=== PATIENT | female | born 1945 | race Caucasian/White ===

== ENCOUNTER 2017-01-14 08:50 | Day surgery (SDC) | payer MEDICARE, BC ==
--- NOTE | 2017-01-08 19:57 | HP ---
CC: Dr. Jay Mckinney; [facility] * HISTORY AND PHYSICAL: DATE OF ADMISSION/SURGERY: 01/14/17 ATTENDING PHYSICIAN: Enoch Cornejo MD * (DICTATED BY JENNIFER GRIFFITH) CHIEF COMPLAINT: Right nipple discharge. HISTORY OF PRESENT ILLNESS: Mrs. Kirkland is a pleasant 71-year-old female, who was referred to our [facility] from [facility] with complaints of right nipple discharge. The patient notes that she had a single episode of dark- black nipple discharge earlier last week. She denies any recurrent symptoms from the right or the left breast. She has never noticed any similar complaints in the past. She was seen by her [facility] office and had breast exam and also had a followup digital right mammogram as well as ultrasound. The patient had her annual mammogram back in May that has been normal bilaterally. Her followup digital right mammogram and sonogram last week was essentially normal as well. The patient was sent to our office for further evaluation of right nipple discharge. She was seen by Dr. Cornejo last week and had examination of bilateral breasts that was found to be normal as well. The patient herself denies feeling any masses, lumps, skin changes or nipple retraction bilaterally. She does have a self-breast exam on a regular basis. She is menarche at age 14 and her last menstrual period was roughly in 2003. She is a G4, P3, postmenopausal female, with no significant past OCCUPATIONAL THERAPIST history. She denies any oral contraceptive use. She has never had any breast biopsy or any history of breast problems in the past. She also denies any significant family history of breast cancer. Given her episode of right breast discharge, she was sent to our office for evaluation and she was found to be a good candidate for right breast terminal duct excision to be performed by Dr. Cornejo on a later date. PAST MEDICAL HISTORY: Significant for hypertension, hyperlipidemia, and seasonal allergies. PAST SURGICAL HISTORY: Significant for cholecystectomy 20 years ago, as well as right foot hammertoe surgery, as well as Moise neuroma removed. She also had dilatation and curettage back in August of 1999, as well as tonsillectomy and adenoidectomy, and wisdom teeth extraction. CURRENT MEDICATIONS: Her medications at home include: 1. Loratadine 10 mg once daily. 2. Multivitamin 1 p.o. q. daily. 3. Caltrate with vitamin D 600 mg once daily. 4. Ramipril 10 mg once daily. 5. Crestor 5 mg 1 tablet q. day. 6. She also carries an EpiPen 2-Tha, to use as needed since she is allergic to BEE STING. ALLERGIES: Her medication allergies include DEMEROL, ERYTHROMYCIN, TOPICAL MYCIN OINTMENTS. FAMILY HISTORY: Significant for pancreatic cancer in her mother, who is back in 2005, as well as heart disease and hypertension, but denies any family history of breast cancer. SOCIAL HISTORY: The patient has never smoked. She drinks alcohol rarely and caffeine intake is minimal. REVIEW OF SYSTEMS: See HPI, otherwise negative. She denies any headache, dizziness, blurred vision or double vision. No sore throat, cough, shortness of breath, palpitation or chest pain. She denies any back pain, flank pain, dysuria, hematuria, or urinary frequency. She admits to a single episode of right nipple discharge, but denies any breast pain, swelling, redness, lumps or masses on self- breast exam. No fever, chills, night sweats or recent weight loss. PHYSICAL EXAMINATION GENERAL: She is a pleasant older female, healthy appearing, and in no acute distress or discomfort at the time of her visit. VITAL SIGNS: Her vitals today revealed a blood pressure of 138/94, pulse of 66 , temperature of 97.3, and respirations of 16. She is 5 feet 2 inches, and weighs 200 pounds, with BMI of 36.6. HEENT: Sclerae anicteric. PERRLA. EOMs intact. Oropharynx is pink and moist , with no exudate. NECK: Supple. Trachea midline. No cervical adenopathy or thyromegaly. LUNGS: Clear to auscultation bilaterally. No rales, wheezes or rhonchi. HEART: Regular rate and rhythm. Normal S1 and S2, without rubs, murmurs or gallops. BACK: Normal curvature. No CVA tenderness. BREAST EXAM: Performed earlier this week by Dr. Cornejo, that showed symmetrical breasts on examination, without any skin or nipple changes. There was no axillary or supraclavicular lymphadenopathy bilaterally. Careful examination of the right breast failed to reveal any suspicious masses, lumps or lesions. There was a very scanty bloody nipple discharge from the 7 o'clock position of the right nipple and was consistently coming from a solitary duct. There was no nipple discharge noted on the left breast. ABDOMEN: Soft, nontender, and nondistended. No hernias, masses or hepatosplenomegaly. EXTREMITIES: Without cyanosis, clubbing or edema. NEUROLOGIC: Grossly intact. RECTAL EXAM: Deferred at this time. IMPRESSION: A 71-year-old female with an episode of right nipple bloody discharge with negative digital mammogram and ultrasound. PLAN: Patient was seen, as mentioned above, with Dr. Cornejo earlier this week and she is scheduled for a right breast terminal duct excision on 01/14/17. We discussed with her today, the rationale, indications, risks, and benefits of surgery. Risks include, but not limited to infection, bleeding or injury to adjacent structures. The patient appears to understand and wishes to proceed with surgery as outlined. We will obtain baseline blood work and updated EKG unless she had one in the last 6 months. She is relatively healthy female and there is no need for any medical clearance to be obtained. The plan is for her to have right breast terminal duct excision with IV sedation as well as local anesthetic to be performed as a same-day surgery procedure. We will follow her up accordingly. JENNIFER GRIFFITH [id number]/[facility] #: [id number] CARLA
[~2017-01-14 08:50] MED LIST: Buffered Lidocaine 0.9% SYRIN* 5 ML/SYR SYRINGE INTRADERM ONE
[2017-01-14] MEDS ORDERED: ceFAZolin 2 GM PREMIX (*) 50 ML IVPB ONE (09:00)
[2017-01-14] MEDS ORDERED: Buffered Lidocaine 0.9% SYRIN* 5 ML/SYR SYRINGE ONE (09:00)
[2017-01-14] MEDS ORDERED: Lidocaine 1% INJ* 10 MG/ML 30 ML SDV ONE (09:54)
[2017-01-14] MEDS ORDERED: Bupivacaine 0.5% SDV PF* 30 ML VIAL ONE (09:54)
[2017-01-14] MEDS ORDERED: Midazolam* 1 MG/ML 5 ML VIAL (5 MG) ONE (10:10)
[2017-01-14] MEDS ORDERED: fentaNYL* 50 MCG/ML 2 ML VIAL (100 MCG VIAL) ONE (10:20)
[2017-01-14] MEDS ORDERED: Propofol* 10 MG/ML 20 ML BTL IV PUSH ONE (10:31)
[2017-01-14] MEDS ORDERED: Midazolam* 1 MG/ML 2 ML VIAL (2 MG) ONE (10:31)
[2017-01-14] MEDS ORDERED: fentaNYL* 50 MCG/ML 2 ML VIAL (100 MCG VIAL) IV PRN (10:48)
[2017-01-14] MEDS ORDERED: HYDROcodone/ACETAMIN 5-325 MG* 1 TAB PO PRN (10:48)
[2017-01-14] MEDS ORDERED: oxyCODONE TAB* 5 MG TAB PO PRN (10:48)
[2017-01-14] MEDS ORDERED: Ondansetron INJ* 2 MG/ML VIAL IV PRN (10:48)
[2017-01-14 12:05] VITALS: BP 120/85
[2017-01-14] MEDS ORDERED: HYDROcodone/ACETAMIN 5-325 MG* 1 TAB ONE (12:20)
--- NOTE | 2017-01-15 03:03 | OP ---
CC: Dr. Mckinney; [facility] * DATE OF OPERATION: 01/14/17 - [facility] DATE OF : 47 SURGEON: Enoch Cornejo MD. EDI DEVELOPER: None. ANESTHESIOLOGIST: Dr. Lopes. ANESTHESIA: LMAC anesthesia. PRE-OP DIAGNOSIS: Bloody nipple discharge. POST-OP DIAGNOSIS: Bloody nipple discharge. OPERATIVE PROCEDURE: Right terminal duct excision. DESCRIPTION OF PROCEDURE: The patient was supine on the operative table. After adequate intravenous sedation, compression stockings, Prabha Hugger warmer and intravenous antibiotics, the right breast was prepped with antiseptic and draped in a sterile fashion. Local infiltrative anesthesia was administered. The bloody nipple discharge was identified, and a 0 lacrimal duct probe was passed into the duct. A curvilinear incision was created at the edge of the areola. The duct was then approximated at 7 o'clock position. Dissection was carried out underneath the areola and underneath the nipple to find the duct exiting the nipple and the duct was taken off the nipple and a piece of breast tissue approximately 3 x 3 x 4 cm in size was excised. A white suture was used to fred the terminal duct. A dark suture was used to fred long, short, and medium and it was sent in formalin for pathologic evaluation. During the dissection, a small button hole had been created at the edge of the nipple. This was closed with 5-0 Vicryl. Local anesthetic was additional advanced in the deep tissues as cautery was used for hemostasis. 3-0 Vicryl suture and 5-0 Vicryl suture were used for final closure followed by Steri-Strips and a gauze dressing. She tolerated the procedure well, was awakened and brought to Recovery in good condition. There were no complications. No drains. Pathologic specimen is terminal duct excision. Sponge and instrument counts correct. Estimated blood loss less than 30 mL. [id number]/[facility] #: [id number] [facility]
== END 2017-01-14 12:53 | disposition home or self-care (01) ==
LOC: OR 08:50
PROVIDERS: ATTEND Surgery
DX: N64.52 Nipple discharge (principal); N60.91 Unspecified benign mammary dysplasia of right breast; N64.59 Other signs and symptoms in breast; I10 Essential (primary) hypertension; Z90.49 Acquired absence of other specified parts of digestive tract
CPT/HCPCS: 88307; J0690; J2001; J2250; J2704; J3010

== ENCOUNTER 2017-08-04 08:22 | Day surgery (SDC) | payer MEDICARE, BC ==
[~2017-08-04 08:22] MED LIST changes: +Cyclopentolate 1% OPTH.SOL* 2 ML BTL ONE; +Ketorolac 0.5% OPHTH (NF) 0.5 % 5 ML BTL ONE; +Lidocaine 1% MPF* 2 ML VIAL ONE; +Lidocaine 2% EPI 1:200000 MPF* 20 ML VIAL ONE; +Neomycin/Polymy/Dex OPTH.SUSP* MAXITROL 0.1% 5 ML ONE; +Phenylephrine 2.5% OPTH.SOL* 2 ML BTL ONE; +Povidone Iodine 5% OPTH* 30 ML BTL ONE; +Proparacaine 0.5% OPHTH.SOL* 15 ML BTL ONE; +acetaZOLAMIDE TAB* 250 MG ONE
[2017-08-04] MEDS ORDERED: Midazolam* 1 MG/ML 2 ML VIAL (2 MG) ONE ×2 (10:28)
--- NOTE | 2017-08-04 11:01 | OP ---
DATE OF OPERATION: 08/04/2017. DATE OF : 1945. SURGEON: Gilberto Longo M.D. PREOPERATIVE DIAGNOSIS: Cataract right eye. POSTOPERATIVE DIAGNOSIS: Cataract right eye. OPERATIVE PROCEDURE: Extracapsular cataract extraction with intraocular lens implant right eye. PROCEDURE: The patient was brought to the operating room after being given 1/2% Alcaine with epineph rine drops in the preoperative area. The eye was prepped and draped in the usual sterile fashion. S terile drape and eyelid speculum were placed. Again, topical 1/2% Alcaine with epinephrine was given . A paracentesis incision was made at the 9 o'clock position with the No.75 blade. Clear cornea inc ision 2.2 x 2.2-mm was created at the 12 o'clock position starting at the anterior limbus using the 2 .2-mm keratome. The anterior chamber was irrigated with 0.4 mL of 1% non-preservative intracameral l idocaine and filled with DisCoVisc. A capsulorrhexis was completed using the cystotome and the Utrat a forceps. Hydrodissection was performed with balanced salt solution. The lens nucleus was removed w ith the Phacoemulsification handpiece without incident. Cortex was removed with the irrigation-aspir ation handpiece. The capsular bag was re-inflated using DisCoVisc and an [id number] 18 implant was inser diana with the shooter. A Malyugin ring was used to dilate the pupil prior to capsulorrhexis because t he pupil was only a few millimeters large and removed after insertion of the lens. The irrigation-as piration handpiece was used to remove all residual DisCoVisc. The eye was refilled with balanced brandon t solution and the wound checked and found to be watertight. Topical Maxitrol drops were given. Indication for complex cataract surgery: Pupil abnormalities requiring iris dilation device. [id number]/[facility] #: [id number]
[2017-08-04 11:09] VITALS: BP 139/59
== END 2017-08-04 11:04 | disposition home or self-care (01) ==
LOC: OREAST 08:22
PROVIDERS: ATTEND Specialist
DX: H25.11 Age-related nuclear cataract, right eye (principal); H21.561 Pupillary abnormality, right eye; I10 Essential (primary) hypertension; E78.4 Other hyperlipidemia
CPT/HCPCS: A9270-GY; J2250; V2632

== ENCOUNTER 2017-08-11 10:19 | Day surgery (SDC) | payer MEDICARE, BC ==
[~2017-08-11 10:19] MED LIST changes: -Lidocaine 2% EPI 1:200000 MPF* 20 ML VIAL ONE; +Lidocaine 2% EPI 1:200000 MPF*10-20 ML VIAL ONE
[2017-08-11] MEDS ORDERED: Midazolam* 1 MG/ML 2 ML VIAL (2 MG) ONE (12:50)
[2017-08-11 13:25] VITALS: BP 148/89
--- NOTE | 2017-08-11 13:25 | OP ---
DATE OF OPERATION: 08/11/2017. DATE OF : 1945. SURGEON: Gilberto Longo M.D. PREOPERATIVE DIAGNOSIS: Cataract left eye. POSTOPERATIVE DIAGNOSIS: Cataract left eye. OPERATIVE PROCEDURE: Extracapsular cataract extraction with intraocular lens implant left eye. PROCEDURE: The patient was brought to the operating room after being given 1/2% Alcaine with epineph rine drops in the preoperative area. The eye was prepped and draped in the usual sterile fashion. S terile drape and eyelid speculum were placed. Again, topical 1/2% Alcaine with epinephrine was given . A paracentesis incision was made at the 3 o'clock position with the No.75 blade. Clear cornea inc ision 2.2 x 2.2-mm was created at the 6 o'clock position starting at the anterior limbus using the 2. 2-mm keratome. The anterior chamber was irrigated with 0.4 mL of 1% non-preservative intracameral li docaine and filled with DisCoVisc. A capsulorrhexis was completed using the cystotome and the Utrata forceps. Hydrodissection was performed with balanced salt solution. The lens nucleus was removed wi th the Phacoemulsification handpiece without incident. Cortex was removed with the irrigation-aspira tion handpiece. The capsular bag was re-inflated using DisCoVisc and an SN60WF 19.5 implant was inse rted with the shooter. A Malyugin ring was used to dilated the pupil prior to capsulorrhexis because of a small pupil, removed after insertion of the lens. The irrigation-aspiration handpiece was used to remove all residual DisCoVisc. The eye was refilled with balanced salt solution and the wound ch ecked and found to be watertight. Topical Maxitrol drops were given. Indication for complex cataract surgery: Iris abnormalities requiring pupil dilation device. [id number]/[facility] [place] #: [id number]
== END 2017-08-11 13:21 | disposition home or self-care (01) ==
LOC: OREAST 10:19
PROVIDERS: ATTEND Specialist
DX: H25.12 Age-related nuclear cataract, left eye (principal); Q13.2 Other congenital malformations of iris; I10 Essential (primary) hypertension; E78.4 Other hyperlipidemia
CPT/HCPCS: A9270-GY; J2250; V2632

== ENCOUNTER 2018-04-04 16:54 | Emergency (ER) | payer MEDICARE, BC ==
[2018-04-04] MEDS ORDERED: Labetalol IV* 5 MG/ML 20 ML VIAL IV PUSH ONE (20:59)
--- NOTE | 2018-04-04 21:03 | ED ---
Neurological HPI - HPI Summary HPI Summary: This patient is a 72 year old female presenting to [facility] with a chief complaint of a mini-stroke 2 days ago. Patient has a hx of sciatica and ophthalmic migraines. Patient states 2 days ago, she started having symptoms that mimic a migraine with a headache and blurry vision. Soon after, her right hand went numb and she experienced tingling along her right jaw. Patient states she became confused, with scattered thoughts and was unable to speak properly. The episode lasted around 2 and a half minutes. Patient states afterwards there was no headache, but she took exedrin just in case. Currently, patient is at baseline with no issues. - History of Current Complaint Chief Complaint: EDNeurologicalDeficit Stated Complaint: POSS MINI STROKE Time Seen by Provider: 04/04/18 20:43 Onset/Duration: Started days ago, Resolved Timing: Constant Current Severity: None Neurological Deficit Location: Facial, RUE Headache Location: Occipital (Right), Occipital (Left) Pain Intensity: 0 Pain Scale Used: 0-10 Numeric Character: Paresthesia, Motor Weakness, Impaired Speech, Confusion Episode Lasting: Seconds/Minutes - 2 and half minutes Number of Episodes: 1 Aggravating: Nothing Alleviating: Nothing Associated Signs and Symptoms: Positive: Visual Changes, Impaired Speech, Numbness - Allergy/Home Medications Allergies/Adverse Reactions: Allergies Allergy/AdvReac Type Severity Reaction Status Date / Time erythromycin base Allergy Severe Rash, HIVES Verified 04/04/18 17:10 meperidine AdvReac Intermediate Nausea Verified 04/04/18 17:10 bee stings Allergy Severe hives, Uncoded 08/11/17 10:28 swelling topical mycins Allergy Severe Rash Uncoded 08/11/17 10:28 PMH/Surg Hx/FS Hx/Imm Hx Previously Healthy: No Cardiovascular History: Reports: Hx Hypertension Musculoskeletal History: Reports: Hx Arthritis - OSTEOPENIA, Hx Osteoporosis - OSTEOPENIA, Other Musculoskeletal History - spinal stenosis Denies: Hx Rheumatoid Arthritis Sensory History: Reports: Hx Cataracts - BOTH EYES, Hx Contacts or Glasses Denies: Hx Hearing Aid Opthamlomology History: Reports: Hx Cataracts - BOTH EYES, Hx Contacts or Glasses Neurological History: Reports: Hx Headaches, Hx Migraine - Cancer History Hx Chemotherapy: No Hx Radiation Therapy: No - Surgical History Surgery Procedure, Year, and Place: cholecystectomy, possible diverticulitis Hx Anesthesia Reactions: No Infectious Disease History: No Infectious Disease History: Denies: Traveled Outside the [place] in Last 30 Days - Family History Known Family History: Positive: Hypertension - Social History Alcohol Use: Weekly Alcohol Amount: 1-2 DAILY-WEEKLY Hx Substance Use: No Substance Use Type: Reports: None Hx Tobacco Use: No Smoking Status (MU): Never Smoked Tobacco Review of Systems Negative: Fever Positive: Blurred Vision Positive: Headache, Weakness, Paresthesia, Numbness All Other Systems Reviewed And Are Negative: Yes Physical Exam - Summary Physical Exam Summary: VITAL SIGNS: Reviewed. GENERAL: Patient is a well-developed and nourished female who is lying comfortable in the stretcher. Patient is not in any acute respiratory distress. HEAD AND FACE: No signs of trauma. No ecchymosis, hematomas or skull depressions. No sinus tenderness. EYES: PERRLA, EOMI x 2, No injected conjunctiva, no nystagmus. EARS: Hearing grossly intact. Ear canals and tympanic membranes are within normal limits. MOUTH: Oropharynx within normal limits. NECK: Supple, trachea is midline, no adenopathy, no JVD, no carotid bruit, no c- spine tenderness, neck with full ROM. CHEST: Symmetric, no tenderness at palpation LUNGS: Clear to auscultation bilaterally. No wheezing or crackles. CVS: Regular rate and rhythm, S1 and S2 present, no murmurs or gallops appreciated. ABDOMEN: Soft, non-tender. No signs of distention. No rebound no guarding, and no masses palpated. Bowel sounds are normal. EXTREMITIES: FROM in all major joints, no edema, no cyanosis or clubbing. NEURO: Alert and oriented x 3. No acute neurological deficits. Speech is normal and follows commands. SKIN: Dry and warm Triage Information Reviewed: Yes Vital Signs On Initial Exam: Initial Vitals Temp Pulse Resp BP Pulse Ox 97.6 F 99 16 184/96 96 04/04/18 17:00 04/04/18 17:00 04/04/18 17:00 04/04/18 17:00 04/04/18 17:00 Vital Signs Reviewed: Yes - Roseann Coma Scale Best Eye Response: 4 - Spontaneous Best Motor Response: 6 - Obeys Commands Best Verbal Response: 5 - Oriented Coma Scale Total: 15 Diagnostics - Vital Signs Vital Signs Temp Pulse Resp BP Pulse Ox 04/04/18 19:00 98.2 F 81 16 170/111 96 04/04/18 17:00 97.6 F 99 16 184/96 96 - Laboratory Result Diagrams: 04/04/18 21:26 04/04/18 21:21 Lab Statement: Any lab studies that have been ordered have been reviewed, and results considered in the medical decision making process. - CT CT Brain CT Interpretation Completed By: Radiologist Summary of CT Findings: No acute intracranial abnormality. ED physician has reviewed this radiology report. CTA head CT Interpretation Completed By: Radiologist Summary of CT Findings: no acute findings, No acute vascular abnormality identified in the neck. ED physician has reviewed this radiology report. - EKG 2115 Cardiac Rate: NL EKG Rhythm: Sinus Rhythm - 64 BPM Summary of EKG Findings: An EKG, taken 2115, reveals NSR (64 BPM), normal axis, normal intervals, Nonspecific T-wave changes in the inferior leads at low voltage Course/Dx - Course Assessment/Plan: his patient is a 72 year old female presenting to [facility] with a chief complaint of a mini-stroke 2 days ago. Patient has a hx of sciatica and ophthalmic migraines. Patient states 2 days ago, she started having symptoms that mimic a migraine with a headache and blurry vision. Soon after, her right hand went numb and she experienced tingling along her right jaw. Patient states she became confused, with scattered thoughts and was unable to speak properly. The episode lasted around 2 and a half minutes. Patient states afterwards there was no headache, but she took exedrin just in case. Currently, patient is at baseline with no issues.CT Brain reveals, per radiologist, No acute intracranial abnormality. ED physician has reviewed this radiology report. CTA Head reveals, per radiologist, no acute findings, No acute vascular abnormality identified in the neck. Bloodwork obtained. In the ED the patient was given Labetalol. The patient will be d/c home with a dx of TIA. - Diagnoses Provider Diagnoses: TIA (transient ischemic attack) Discharge - Sign-Out/Discharge Documenting (check all that apply): Patient Departure - Discharge Plan Condition: Stable Disposition: HOME Patient Education Materials: Transient Ischemic Attack (ED) Referrals: Jay Mckinney MD [Primary Care Provider] - Additional Instructions: Take one whole aspirin daily with food. Follow up with your primary care physician in 1-3 days. RETURN TO THE EMERGENCY DEPARTMENT FOR CHANGING OR WORSENING SYMPTOMS. - Attestation Statements Document Initiated by Scribe: Yes Documenting Scribe: Sharon Harris Provider For Whom Scribe is Documenting (Include Credential): Jorge Barbour MD Scribe Attestation: Sharon Mendez, scribed for Jorge Barbour MD on 04/05/18 at 0017. Status of Scribe Document: Ready
[2018-04-04 21:33] LABS: INR 0.89 (0.77-1.02)
[2018-04-04 21:47] LABS: ABS Basophils 0.1 10^3/ul (0-0.2); ABS Eosinophils 0.2 10^3/ul (0-0.6); ABS Lymphocytes 2.2 10^3/ul (1.0-4.8); ABS Monocytes 0.5 10^3/ul (0-0.8); ABS Neutrophils 3.4 10^3/ul (1.5-7.7); ABS Nucleated RBC 0 10^3/ul; Eosinophil % 2.4 %; Hematocrit 40 % (35-47); Hemoglobin 13.9 g/dl (12.0-16.0); Lymphocyte % 35.2 %; Mean Corpuscular HGB Conc 35 g/dl (31-36); Mean Corpuscular Hemoglobin 32 pg (27-31); Mean Corpuscular Volume 92 fL (80-97); Mean Platelet Volume 7.5 fL (7.4-10.4); Nucleated Red Blood Cells % 0.3; Platelet Count 244 10^3/ul (150-450); Red Cell Distribution Width 13 % (10.5-15); White Blood Count 6.3 10^3/ul (3.5-10.8)
[2018-04-04 22:00] LABS: EGFR Non-African American 76.2 (>60)
[2018-04-04] MEDS ORDERED: Iohexol 350* (CONTRAST) 500 ML MDV IV ONE (22:19)
[2018-04-05 01:06] VITALS: BP 152/95
== END 2018-04-05 01:06 | disposition home or self-care (01) ==
LOC: ED 16:54
DX: G45.9 Transient cerebral ischemic attack, unspecified (principal); R51 Headache; H53.8 Other visual disturbances; R53.1 Weakness; I10 Essential (primary) hypertension
CPT/HCPCS: 36415; 70450; 70496; 70498; 80053; 83735; 85025; 85610; 85730; 93005; 99283

== ENCOUNTER 2022-03-05 17:46 | Observation (INO) ==
[2022-03-05] MEDS ORDERED: Iodixanol (CONTRAST) 320 MG/ML 100 ML SDV IV ONE (18:13)
[2022-03-05 19:05] LABS: ABS Eosinophils 0.1 10^3/ul (0-0.6); ABS Monocytes 0.5 10^3/ul (0-0.8); Eosinophil % 2.2 %; Hematocrit 41 % (35-47); Hemoglobin 13.8 g/dL (12.0-16.0); Lymphocyte % 30.3 %; Mean Corpuscular HGB Conc 33 g/dL (31-36); Mean Corpuscular Hemoglobin 32 pg (27-31); Mean Corpuscular Volume 97 fL (80-97); Mean Platelet Volume 7.2 fL (7.4-10.4); Platelet Count 272 10^3/uL (150-450); Red Blood Count 4.29 10^6 /uL (3.70-4.87); Red Cell Distribution Width 13 % (10-15); White Blood Count 6.7 10^3/uL (3.5-10.8)
[2022-03-05 19:15] LABS: Activated Partial Thrombo Time 31.2 seconds (26.0-38.0); INR 0.93 (0.89-1.11)
[2022-03-05 19:46] LABS: Urine Appearance Clear; Urine Bilirubin Negative (Negative); Urine Blood Negative (Negative); Urine Color Straw; Urine Glucose Negative (Negative); Urine Ketones Negative (Negative); Urine Nitrite Negative (Negative); Urine Protein Negative (Negative); Urine Specific Gravity 1.017 (1.002-1.030); Urine Urobilinogen Negative (Negative)
[2022-03-05 19:47] LABS: Albumin 4.4 g/dL (3.2-5.2); Albumin/Globulin Ratio 2.1 (1-3); Calcium 9.5 mg/dL (8.6-10.3); Globulin 2.1 g/dL (2-4); HDL Cholesterol 52.6 mg/dL; Potassium 3.8 mmol/L (3.5-5.0); Total Bilirubin 0.5 mg/dL (0.2-1.0); Total Protein 6.5 g/dL (6.4-8.9); eGFR CKD-EPI 90.1 (>60)
[2022-03-05 19:51] LABS: Urine Bacteria Absent (Absent); Urine Red Blood Cell Trace(0-2/hpf) (Absent); Urine White Blood Cell 1+(6-10/hpf) (Absent)
[2022-03-05] MEDS ORDERED: Enoxaparin 40 MG/0.4 ML SYR SUBCUT SCH (23:45)
[2022-03-05 23:56] LABS: TSH Ultra Thyroid Stim Horm 4.16 mcIU/mL (0.34-5.60)
[2022-03-06 02:32] LABS: C Reactive Protein 2.76 mg/L (<8.01)
[2022-03-06 03:55] LABS: Erythrocyte Sed Rate 5 mm/Hr (0-29)
[2022-03-06] MEDS: Enoxaparin 40 MG/0.4 ML SYR SUBCUT SCH (06:37)
[2022-03-06] MEDS ORDERED: Gadoteridol (CONTRAST) 279.3 MG/ML 10 ML IV ONE (13:16)
[2022-03-06] MEDS ORDERED: Perflutren Lipid Microsphere 3 ML VIAL ONE (14:15)
[2022-03-07] MEDS: Enoxaparin 40 MG/0.4 ML SYR SUBCUT SCH (05:51)
[2022-03-07 14:22] VITALS: BP 124/80
== END 2022-03-07 15:00 | disposition home or self-care (01) ==
LOC: ED 17:46 → EDHOLD 17:46 → SUATTDRO 23:01 → MEDTELE 03-06 04:25
PROVIDERS: ADMIT Internal Medicine; ATTEND Internal Medicine

== ENCOUNTER 2023-12-17 18:15 | Observation (INO) ==
[2023-12-17] MEDS ORDERED: Iodixanol (CONTRAST) 320 MG/ML 100 ML SDV IV ONE (18:43)
[2023-12-17 19:12] LABS: ABS Basophils 0.1 10^3/uL (0.0-0.1); ABS Eosinophils 0.2 10^3/uL (0.0-0.5); ABS Lymphocytes 1.7 10^3/uL (1.0-4.8); ABS Monocytes 0.5 10^3/uL (0.0-0.9); Eosinophil % 3.3 %; Hematocrit 40.9 % (35-45); Lymphocyte % 30.9 %; Mean Corpuscular Hemoglobin 32.3 pg (27-33); Mean Corpuscular Hgb Conc 34.2 g/dL (31-36); Mean Corpuscular Volume 94.2 fL (80-97); Nucleated Red Blood Cells % 0.1 %/100WBC (0.0-0.8); Platelet Count 232 10^3/uL (150-450); Red Blood Count 4.33 10^6/uL (3.63-4.92); White Blood Count 5.4 10^3/uL (3.8-11.8)
[2023-12-17 19:23] LABS: Activated Partial Thrombo Time 28.4 seconds (26.0-38.0); INR 0.95 (0.83-1.13)
[2023-12-17 19:55] LABS: Urine Appearance Clear; Urine Bilirubin Negative (Negative); Urine Blood Negative (Negative); Urine Color Yellow; Urine Glucose Negative (Negative); Urine Ketones Negative (Negative); Urine Nitrite Negative (Negative); Urine Protein Negative (Negative); Urine Specific Gravity 1.035 (1.002-1.030); Urine Urobilinogen Negative (Negative); Urine pH 7.5 (5.0-8.0)
[2023-12-17 20:02] LABS: Albumin 4.1 g/dL (3.2-5.2); Albumin/Globulin Ratio 2.1 (1-3); Calcium 9.2 mg/dL (8.6-10.3); Creatinine, Serum 0.9 mg/dL (0.51-0.95); Direct Bilirubin 0.1 mg/dL (0.03-0.18); HDL Cholesterol 48.7 mg/dL; Indirect Bilirubin 0.6 mg/dL (0.3-1.0); Potassium 4.2 mmol/L (3.5-5.0); Total Bilirubin 0.7 mg/dL (0.2-1.0); Total Protein 6.1 g/dL (6.4-8.9); eGFR CKD-EPI 65.8 (>60)
[2023-12-17] MEDS ORDERED: Sulfur Hexaflouride MICROSPHR 25 MG VIAL IV ONE (20:04)
[2023-12-17 20:06] LABS: Urine Bacteria Absent /HPF (Absent); Urine Red Blood Cell 1+(3-5/hpf) /HPF (0-Trace); Urine Squamous Epithelial Cell Present /HPF (Absent); Urine White Blood Cell 1+(6-10/hpf) /HPF (0-Trace)
[2023-12-17 20:47] LABS: High Sensitivity Troponin 1 Hr 5 pg/mL (<15)
[2023-12-18] MEDS: Enoxaparin 40 MG/0.4 ML SYR SUBCUT SCH (01:01)
[2023-12-18] MEDS: Lactated Ringers 1000 ml BAG 1,000 ML IV ONE (01:16)
[2023-12-18 13:16] VITALS: BP 146/96
== END 2023-12-18 13:16 | disposition home or self-care (01) ==
LOC: EDHOLD 18:15 → ED 18:15 → SUATTDRO 20:04 → EDHOLD 12-18 13:20
PROVIDERS: ADMIT Internal Medicine; ATTEND Hospitalist